=== PATIENT | female | born 1975 | race American Indian/Alaskan Native ===

== ENCOUNTER 2023-04-07 22:00 | Outpatient (CLI) | payer OTHER | END 2023-04-07 22:01 | disposition critical access hospital (66) | LOC: EMS 22:00 | DX: R55 Syncope and collapse (principal); R11.0 Nausea; I95.9 Hypotension, unspecified | CPT/HCPCS: A0425; A0427 ==

== ENCOUNTER 2023-04-07 22:15 | Emergency (ER) | payer OTHER ==
[2023-04-07] MEDS ORDERED: SODIUM CHLORIDE 0.9% 1,000 ML IV STA (22:29)
[2023-04-07 22:57] LABS: BASOPHILS # (AUTO) 0.1 10^3/uL (0.0-0.1); BASOPHILS % (AUTO) 1.5 %; EOSINOPHILS # (AUTO) 0.2 10^3/uL (0.0-0.7); HGB - HEMOGLOBIN 12.7 g/dL (12.0-16.0); LYMPHOCYTES # (AUTO) 1.6 10^3/uL (1.5-3.5); LYMPHOCYTES % (AUTO) 33.6 %; MEAN CORPUSCULAR HGB CONC 33.4 g/dL (32.0-36.0); MEAN CORPUSCULAR VOLUME 95.7 fL (81.0-99.0); MONOCYTES # (AUTO) 0.4 10^3/uL (0.0-1.0); MONOCYTES % (AUTO) 8.3 %; NEUTROPHILS # (AUTO) 2.5 10^3/uL (1.5-6.6); NEUTROPHILS % (AUTO) 51.6 %; PLT - PLATELET COUNT 185 10^3/uL (130-450); RED BLOOD COUNT 3.97 10^6/uL (4.20-5.40); RED CELL DISTRIBUTION WIDTH 11.9 % (12.0-15.0); WHITE BLOOD COUNT 4.8 x10^3/uL (4.8-10.8)
[2023-04-07 23:14] LABS: ALBUMIN 3.8 g/dL (3.2-5.5); ALBUMIN/GLOBULIN RATIO 1.7 (1.0-2.2); BILIRUBIN,TOTAL 0.2 mg/dL (0.2-1.0); CALCIUM 8.8 mg/dL (8.5-10.3); CREATININE 0.7 mg/dL (0.6-1.3); POTASSIUM 3.2 mmol/L (3.5-4.5); TOTAL PROTEIN 6.1 g/dL (6.4-8.9)
--- NOTE | 2023-04-08 03:41 | ED Physician Documentation ---
History of Present Illness - Stated complaint Stated Complaint: SYNCOPE - Chief complaint Chief Complaint: Neuro - History obtained from History obtained from: Patient - Additonal information Additional information: The patient is brought to the emergency department by EMS for chief complaint of an episode of syncope after having a couple of alcoholic drinks, her gabapentin, and a dose of cough syrup. Patient states that she normally takes gabapentin but has had a little bit of a cough recently institute cough syrup as well. She was having the drinks recreationally. The patient states she got up to go the bathroom and suddenly began to feel lightheaded. Her states he heard her fall and believes she may have hit her head. The patient denies any complaints at this time, other than feeling a little lightheaded and "out of it." The patient has a history of syncopal episodes previously. She denies chest pain or palpitations. No shortness of breath or nausea. No other complaints at this time. PD PAST MEDICAL HISTORY - Past Medical History Past Medical History: No - Past Surgical History Past Surgical History: Yes /[employer]: section - Present Medications Home Medications: Ambulatory Orders Medication Instructions Recorded Confirmed Potassium Chloride [K-Dur] 20 meq PO BIDWM #8 tablet 04/08/23 - Allergies Allergies/Adverse Reactions: Allergies Allergy/AdvReac Type Severity Reaction Status Date / Time No Known Drug Allergies Allergy Verified 04/07/23 22:28 - Social History Does the pt smoke?: No Smoking Status: Never smoker Does the pt drink ETOH?: Yes Substance Use and Type: Marijuana - Immunizations Immunizations are current?: Yes PD ED PE NORMAL - Vitals Vital signs reviewed: Yes - General General: No acute distress, Well developed/nourished, Other (Mildly drowsy, otherwise appropriate.) - HEENT HEENT: Atraumatic, PERRL, EOMI, Moist mucous membranes - Neck Neck: Supple, no meningeal sign - Cardiac Cardiac: RRR, No murmur - Respiratory Respiratory: No respiratory distress, Clear bilaterally - Abdomen Abdomen: Soft, Non tender, Non distended - Derm Derm: Normal color, Warm and dry, No rash - Extremities Extremities: No deformity, No edema - Neuro Neuro: Alert and oriented X 3, Other (Grossly intact) - Psych Psych: Normal mood, Normal affect Results - Vitals Vitals: Oxygen O2 Source Room air - EKG (time done) 2222 EKG releavant findings:: EKG personally interpreted by author of this note. Relevant findings are: Rate: Rate (enter#) (61) Rhythm: NSR [place]: Normal Intervals: Normal [place] QRS: Normal Ischemia: Normal ST segments Compare to prior EKG: Old EKG unavailable Computer interpretation: Agree with computer - Labs Labs: Laboratory Tests 04/07/23 04/07/23 22:47 22:47 WBC 4.8 RBC 3.97 L Hgb 12.7 Hct 38.0 MCV 95.7 MCH 32.0 H MCHC 33.4 RDW 11.9 L Plt Count 185 MPV 11.0 H Neut # (Auto) 2.5 Lymph # (Auto) 1.6 [place] # (Auto) 0.4 Eos # (Auto) 0.2 Baso # (Auto) 0.1 Absolute Nucleated RBC 0.00 Nucleated RBC % 0.0 Sodium 138 Potassium 3.2 L Chloride 107 Carbon Dioxide 24 Anion Gap 7.0 BUN 21 H Creatinine 0.7 Estimated GFR (MDRD) 89 Glucose 108 H Calcium 8.8 Total Bilirubin 0.2 AST 12 ALT 8 L Alkaline Phosphatase 51 Total Protein 6.1 L Albumin 3.8 Globulin 2.3 Albumin/Globulin Ratio 1.7 Lipase 41 - Rads (name of study) head CT Relevant Findings:: Final report received, See rad report (neg) CT cervical spine Relevant Findings:: Final report received, See rad report (neg) PD Medical Decision Making - ED course Complexity details: reviewed results, re-evaluated patient, considered differential, d/w patient, d/w family ED course: The pt was worked up in the ED with CT head and cervical spine, labs, and EKG. The pt's workup was unremarkable. I suspected that the combination of meds and EtOH had contributed strongly to the pt's episode at home. The pt had been fluid-hydrated, and was stable for d/c. She was feeling much better. We have discussed the usual indications for follow-up and return. Departure - Departure Disposition: 01 Home, Self Care Clinical Impression: Hypokalemia Syncope Qualifiers: Syncope type: unspecified Qualified Code(s): R55 - Syncope and collapse Condition: Stable Instructions: ED Potassium Deficiency, ED Fainting Unkn Cause Prescriptions: Potassium Chloride [K-Dur] 20 meq PO BIDWM #8 tablet Comments: Your labs overall look fairly good. You have a slightly low potassium and for this, a prescription for potassium supplement for the next several days has been electronically transmitted to the [facility] pharmacy in [place], your pharmacy of choice on record. Your CT scans of the head and neck look goodno bleeding in the brain or broken bones. Please be sure you are getting plenty of fluids to drink and get plenty of rest if you are not feeling well. Is not clear exactly why you fainted but most likely, the combination of cough medicine, marijuana, and alcohol played some degree of a role. You are not significantly anemic today, but you may take a multivitamin with iron if you are concerned about this. You can get this [id number]. Please call and make an appointment to follow-up with your primary care physician for any further concerns. Forms: PCP List Discharge Date/Time: 04/08/23 03:58
[2023-04-08 03:44] VITALS: BP 114/68; O2SAT 97
--- NOTE | 2023-04-08 07:50 | CT Report ---
PROCEDURE: HEAD WO INDICATIONS: fall/syncope/head inj/etoh TECHNIQUE: Noncontrast 4.5 mm thick angled axial sections acquired from the foramen magnum to the vertex. For r adiation dose reduction, the following was used: automated exposure control, adjustment of mA and/or kV according to patient size. COMPARISON: None. FINDINGS: Image quality: Excellent. CSF spaces: Basal cisterns are patent. No extra-axial fluid collections. Ventricles are normal in size and shape. Brain: No midline shift. No intracranial masses or hemorrhage. Weeks-white matter interface is norm al. Skull and face: Calvarium and visualized facial bones are intact, without suspicious lesions. Sinuses: Visualized sinuses and mastoids are clear. IMPRESSION: No acute intracranial pathology. Findings are concordant with preliminary interpretation provided by [facility]. Reviewed by: Emmett Kovacs MD on 04/08/2023 7:49 AM PDT Approved by: Emmett Kovacs MD on 04/08/2023 7:49 AM PDT Station ID: [id number]
--- NOTE | 2023-04-08 07:52 | CT Report ---
PROCEDURE: CERVICAL SPINE WO INDICATIONS: fall/head injury/etoh TECHNIQUE: Noncontrast 3 mm thick sections acquired from the skull base to the T4 level. Sagittal and coronal r eformats were then constructed. For radiation dose reduction, the following was used: automated exp osure control, adjustment of mA and/or kV according to patient size. COMPARISON: None. FINDINGS: Image quality: Excellent. Bones: No fractures or dislocations. Visualized superior ribs are intact. Mild cervical spondylosis . Soft tissues: Prevertebral soft tissues are normal in thickness. No paravertebral hematomas. No ap ical pneumothoraces. IMPRESSION: No acute cervical fracture or dislocation. Findings are concordant with preliminary interpretation provided by [facility]. Reviewed by: Emmett Kovacs MD on 04/08/2023 7:50 AM PDT Approved by: Emmett Kovacs MD on 04/08/2023 7:50 AM PDT Station ID: [id number]
== END 2023-04-08 03:58 | disposition home or self-care (01) ==
LOC: EDUNIT# → ED 22:15
DX: E87.6 Hypokalemia (principal); R55 Syncope and collapse
CPT/HCPCS: 36415; 80053; 83690; 85025; 93005; 96360; 99284